=== PATIENT | male | born 1950 | race Caucasian/White ===

== ENCOUNTER 2017-01-07 16:06 | Emergency (ER) | payer OTHER ==
[~2017-01-07] VITALS: Ht 162.6 cm; Wt 84.5 kg
[~2017-01-07 16:06] MED LIST: AMLODIPINE BESYL5 MG PO; ASPIR-LOW81 MG PO; ATORVASTATIN CA80 MG PO; BRILINTA90 MG PO; FLEXERIL10 MG PO; HYDROCODON-ACE1 EAC8 PO; K-DUR10 MEQ PO; LITHIUM CARBON300 M1 PO; LITHIUM CARBON300 MG PO; METOPROLOL SUCC25 MG PO; NITROSTAT0.4 MG SL; TRAMADOL HCL50 MG PO; VENTOLIN HFA18 GM IH
[2017-01-07 17:01] LABS: HEMATOCRIT 40.9 % (38.0-50.0); MCH 28.5 PG (29.0-34.0); MCV 83.8 FL (86-99); MEAN PLAT.VOLUME 9.9 uM^3 (9.0-12.4); PLATELET COUNT 302 K/uL (156-360); RBC DIS.WIDTH-CV 11.9 % (11.8-14.6); RBC DIS.WIDTH-SD 36.3 % (39-53); RED BLOOD COUNT 4.88 M/uL (4.00-5.50)
[2017-01-07 17:16] LABS: CHLORIDE 106 mEq/L (99-109); POTASSIUM 3.6 mEq/L (3.7-5.4); SODIUM 144 mEq/L (136-147)
[2017-01-07 17:17] LABS: GLUCOSE 122 mg/dL (70-99)
[2017-01-07 17:19] LABS: ANION GAP 16 MEQ/L (2-14)
[2017-01-07 17:21] LABS: GFR ESTIMATE (CALCULATED) 54 mL/min/
[2017-01-07 17:22] LABS: UREA NITROGEN (BUN) 19 mg/dL (9-23)
[2017-01-07 17:26] LABS: TROP-I INTERPRETATION NEGATIVE; TROPONIN-I 0.03 ng/mL (0.0-0.30)
[2017-01-07 17:39] LABS: MAGNESIUM 2.3 mg/dL (1.3-2.7)
[2017-01-07 18:25] LABS: ADD MIUA? YES; BILIRUBIN NEGATIVE; BLOOD SMALL; COLOR STRAW ((YELLOW)); GLUCOSE (STRIP) NEGATIVE; KETONES NEGATIVE; LEUKOCYTES NEGATIVE; NITRITE NEGATIVE; PROTEIN (STRIP) 30; SPECIFIC GRAVITY 1.006 (1.000-1.030); UROBILINOGEN 0.2 MG/DL (0.2-1.0)
[2017-01-07 18:33] LABS: BACTERIA NONE SEEN /HPF; EPITHELIAL CELLS NONE SEEN /HPF; MUCUS NONE SEEN /LPF; RED BLOOD CELLS 0-5 /HPF (0-5); WHITE BLOOD CELLS 0-5 /HPF (0-5)
[2017-01-07] MEDS ORDERED: AZELASTINE137 MCG/0. BOTH NARES (19:59)
[2017-01-07] MEDS ORDERED: FLUTICASONE PRO16 GM BOTH NARES (19:59)
[2017-01-07] MEDS ORDERED: ZESTRIL10 MG PO (19:59)
[2017-01-07] MEDS ORDERED: NORVASC10 MG PO (20:00)
[2017-01-07] MEDS ORDERED: LAMICTAL200 MG PO (20:00)
[2017-01-07] MEDS ORDERED: VITAMIN D22000 UNIT PO (20:01)
[2017-01-07] MEDS ORDERED: TOPROL XL100 MG PO ×2 (20:03)
[2017-01-07] MEDS ORDERED: CLARITIN,ALAVAR10 MG PO (20:04)
[2017-01-07 20:30] VITALS: BP 122/69
[2017-01-07 23:24] LABS: TROP-I INTERPRETATION NEGATIVE; TROPONIN-I 0.03 ng/mL (0.0-0.30)
[2017-01-08 00:01] VITALS: BP 120/69
[2017-01-08 04:36] VITALS: BP 131/72
[2017-01-08 05:42] LABS: HEMATOCRIT 38.4 % (38.0-50.0); MCH 27.9 PG (29.0-34.0); MCHC 32.8 G/DL (30.0-36.0); MCV 85.1 FL (86-99); MEAN PLAT.VOLUME 10.1 uM^3 (9.0-12.4); PLATELET COUNT 270 K/uL (156-360); RBC DIS.WIDTH-CV 12.2 % (11.8-14.6); RBC DIS.WIDTH-SD 37.9 % (39-53); RED BLOOD COUNT 4.51 M/uL (4.00-5.50); WHITE BLOOD COUNT 8.7 K/uL (4.1-10.2)
[2017-01-08 05:58] LABS: TROP-I INTERPRETATION NEGATIVE; TROPONIN-I 0.03 ng/mL (0.0-0.30)
[2017-01-08 06:07] LABS: ANION GAP 8 MEQ/L (2-14); CHLORIDE 110 MEQ/L (99-109); GFR ESTIMATE (CALCULATED) 54 mL/min/; GLUCOSE 105 mg/dL (70-99); POTASSIUM 3.9 MEQ/L (3.7-5.4); SAMPLE HEMOLYSIS CHECK 0; SAMPLE ICTERIC CHECK 0; SAMPLE LIPEMIA CHECK 0; SODIUM 145 MEQ/L (136-147); UREA NITROGEN (BUN) 19 mg/dL (9-23)
[2017-01-08 07:45] VITALS: BP 152/74
[2017-01-08] MEDS ORDERED: SPIRIVA RESPIMAT4 GM IH (12:06)
[2017-01-08] MEDS ORDERED: ADVAIR HFA120 INHALA IH (12:06)
[2017-01-08 12:19] VITALS: BP 147/77
== END 2017-01-08 13:46 | disposition home or self-care (01) ==
LOC: EME 16:06 → EDOF 18:08 → 5WEST 18:08 → EDOF 18:08 → 5WEST 18:08 → ENRESERV 18:09 → 5WEST 20:00
PROVIDERS: Hospitalist; Physician Assistant
DX: R07.89 Other chest pain (principal); I25.10 Atherosclerotic heart disease of native coronary artery without angina pectoris; I25.2 Old myocardial infarction; Z95.5 Presence of coronary angioplasty implant and graft; I12.9 Hypertensive chronic kidney disease with stage 1 through stage 4 chronic kidney disease, or unspecified chronic kidney disease; N18.3 Chronic kidney disease, stage 3 (moderate); I27.20 Pulmonary hypertension, unspecified; J44.9 Chronic obstructive pulmonary disease, unspecified; E78.5 Hyperlipidemia, unspecified; K21.9 Gastro-esophageal reflux disease without esophagitis; F41.9 Anxiety disorder, unspecified; F32.9 Major depressive disorder, single episode, unspecified; Z87.891 Personal history of nicotine dependence; Z79.82 Long term (current) use of aspirin; Z88.0 Allergy status to penicillin
CPT/HCPCS: 71020; 80048; 81003; 83735; 84484; 85027; 85379; 93005; 93306; 94640; 99281; 99285; G0378; J1644

== ENCOUNTER 2017-08-28 14:39 | Observation (INO) | payer OTHER ==
[~2017-08-28] VITALS: Ht 162.6 cm; Wt 86.5 kg
[~2017-08-28 14:39] MED LIST changes: +ADVAIR HFA120 INHALA IH; +AZELASTINE137 MCG/0. BOTH NARES; +CLARITIN,ALAVAR10 MG PO; +FLUTICASONE PRO16 GM BOTH NARES; +LAMOTRIGINE150 MG PO; +NORVASC10 MG PO; +SPIRIVA RESPIMAT4 GM IH; +TOPROL XL100 MG PO; +VITAMIN D22000 UNIT PO; +ZESTRIL10 MG PO
[2017-08-28 15:18] LABS: HEMATOCRIT 40.7 % (38.0-50.0); MCHC 34.4 G/DL (30.0-36.0); MCV 84.4 FL (86-99); PLATELET COUNT 270 K/uL (156-360); RBC DIS.WIDTH-SD 36.4 % (39-53); RED BLOOD COUNT 4.82 M/uL (4.00-5.50); WHITE BLOOD COUNT 8.7 K/uL (4.1-10.2)
[2017-08-28 15:29] LABS: CHLORIDE 107 mEq/L (99-109); POTASSIUM 3.5 mEq/L (3.7-5.4); SODIUM 142 mEq/L (136-147)
[2017-08-28 15:31] LABS: GLUCOSE 121 mg/dL (70-99)
[2017-08-28 15:34] LABS: CREATININE 1.5 mg/dL (0.6-1.3); GFR ESTIMATE (CALCULATED) 49 mL/min/ (58.99-99999)
[2017-08-28 15:35] LABS: UREA NITROGEN (BUN) 20 mg/dL (9-23)
[2017-08-28] MEDS ORDERED: THERA-D2000 UNIT PO (15:37)
[2017-08-28] MEDS ORDERED: METOPROLOL SUC100 MG PO (15:37)
[2017-08-28] MEDS ORDERED: METOPROLOL SUCC50 MG PO (15:38)
[2017-08-28 15:39] LABS: TROP-I INTERPRETATION NEGATIVE; TROPONIN-I 0.06 ng/mL (0.0-0.30)
[2017-08-28] MEDS ORDERED: POTASSIUM CHLO10 ME4 PO (15:40)
[2017-08-28] MEDS ORDERED: ADVIL,NUPRIN,M200 MG PO (16:42)
[2017-08-28] MEDS ORDERED: LO-DOSE ASPIRIN81 M1 PO (16:45)
[2017-08-28 19:44] VITALS: BP 185/81
[2017-08-28 20:29] LABS: HDL CHOLESTEROL 36 MG/DL (Desirable>=40); LDL CHOLESTEROL 50 mg/dL (Desirable<100); NON-HDL CHOLESTEROL 67 mg/dL (Desirable<160); TOTAL CHOLESTEROL 103 mg/dL (Desirable<200); TRIGLYCERIDES 87 MG/DL (Normal: <150)
[2017-08-28 21:58] LABS: TROP-I INTERPRETATION NEGATIVE; TROPONIN-I 0.05 ng/mL (0.0-0.30)
[2017-08-29 00:07] VITALS: BP 119/77
[2017-08-29 03:47] VITALS: BP 123/63
[2017-08-29 05:05] LABS: HEMATOCRIT 36.7 % (38.0-50.0); HEMOGLOBIN 12.3 G/DL (12.5-16.6); MCH 28.3 PG (29.0-34.0); MCHC 33.5 G/DL (30.0-36.0); MCV 84.4 FL (86-99); PLATELET COUNT 232 K/uL (156-360); RBC DIS.WIDTH-CV 11.9 % (11.8-14.6); RBC DIS.WIDTH-SD 36.3 % (39-53); RED BLOOD COUNT 4.35 M/uL (4.00-5.50); WHITE BLOOD COUNT 7.8 K/uL (4.1-10.2)
[2017-08-29 05:23] LABS: TROP-I INTERPRETATION NEGATIVE; TROPONIN-I 0.06 ng/mL (0.0-0.30)
[2017-08-29 05:30] LABS: ALBUMIN 3.4 G/DL (3.2-4.8); ALKALINE PHOSPHATASE 96 IU/L (3-129); ALT (GPT) 17 IU/L (3-49); AST (GOT) 15 IU/L (2-34); CHLORIDE 109 MEQ/L (99-109); CREATININE 1.3 MG/DL (0.6-1.3); GFR ESTIMATE (CALCULATED) 58 mL/min/ (58.99-99999); GLUCOSE 106 mg/dL (70-99); POTASSIUM 3.1 MEQ/L (3.7-5.4); SODIUM 143 MEQ/L (136-147); TOTAL BILIRUBIN 0.5 MG/DL (0.0-1.0); UREA NITROGEN (BUN) 16 mg/dL (9-23)
[2017-08-29 08:18] VITALS: BP 146/72
== END 2017-08-29 10:06 | disposition home or self-care (01) ==
LOC: EME 14:39 → EDOF 16:26 → 4SOUTH 16:26 → EDOF 16:26 → ENRESERV 16:29 → 4SOUTH 19:19 → ENPENDDIS 08-29 → 4SOUTH 08-29 10:06
PROVIDERS: Hospitalist
DX: R07.89 Other chest pain (principal); I12.9 Hypertensive chronic kidney disease with stage 1 through stage 4 chronic kidney disease, or unspecified chronic kidney disease; E11.22 Type 2 diabetes mellitus with diabetic chronic kidney disease; N18.3 Chronic kidney disease, stage 3 (moderate); I25.10 Atherosclerotic heart disease of native coronary artery without angina pectoris; E78.5 Hyperlipidemia, unspecified; R42 Dizziness and giddiness; J44.9 Chronic obstructive pulmonary disease, unspecified; I25.2 Old myocardial infarction; Z95.5 Presence of coronary angioplasty implant and graft; R13.10 Dysphagia, unspecified; F41.9 Anxiety disorder, unspecified; Z79.82 Long term (current) use of aspirin; Z88.0 Allergy status to penicillin; Z88.5 Allergy status to narcotic agent; Z91.018 Allergy to other foods
CPT/HCPCS: 71046; 80048; 80053; 80061; 80306 90; 82948; 84484; 85027; 93005; 99202; 99281; 99285; G0378; J1650; J1815